=== PATIENT | male | born 1990 | race Caucasian/White ===

== ENCOUNTER 2024-06-12 10:30 | Outpatient (RCR) | payer MEDICAID, SELFPAY ==
--- NOTE | 2024-06-06 14:20 | PT.ODAYNRPT ---
PT Outpatient Daily Note OP Daily Note Outpatient Physical Therapy Treatment Date: 06/06/24 Visit Reasons: Spinal Stenosis Subjective: No changes to report at this time, continues to have pain and KELLER. Objective: Please see flow sheet for ther ex list. Assessment: Intervention progression delayed due to pt pain response to light interventions. Plan: Continue with POC. Length of Time (minutes) of Treatment: 30 Minutes Procedure Charges Therapeutic Exercise 30 minutes: Yes
--- NOTE | 2024-06-09 14:13 | PT.ODAYNRPT ---
PT Outpatient Daily Note OP Daily Note Outpatient Physical Therapy Treatment Date: 06/09/24 Visit Reasons: Spinal Stenosis Subjective: Pt reports minimal to no changes at this time. Objective: Please see flow sheet for ther ex list. Assessment: Applied mechanical traction, pt reports some relief tension relief post traction but last a few hours. Plan: Continue with POC. Length of Time (minutes) of Treatment: 30 Minutes Procedure Charges Therapeutic Exercise 30 minutes: Yes
--- NOTE | 2024-06-12 11:20 | PT.ODS1RPT ---
PT OP Progress/Discharge Note Date of Service: 06/12/24 Progress Note/DC Note Progress Note/Discharge Note: DC Note Patient Information Visit Reasons: Spinal Stenosis Medical Diagnosis: C/S Stenosis Treatment Dx #1: Neck Pain Service Continue Service or Discharge: Discharge Discharge Date: 06/12/24 Status Subjective: Pt's neck is about the same and continues to have pain down his arms. Pt has limitation with sitting, sleeping, standing, gripping, and performing recreational activities. Objective: C/S AROM: all motions are WNL Left Shoulder AROM: all motions are WNL Right Shoulder AROM: all motions are up to 50% towards end range BUE MMTs: grossly 3/5 Scapula MMTs: grossly 3-/5 Assessment: Pt continues to have c/s pain with radicular symptoms down the arms leading to difficulty with ADLs. Pt will no longer benefit from physical therapy due to minimal progression towards goals. Pt was instructed on HEP last session and educated to continue exercises to maintain overall mobility. Pt performed all exercises safely, thank you for your referrals. Plan: D/C home with HEP and follow up with MD ACEVEDO Procedure Charges Therapeutic Exercise 30 minutes: Yes
== END 2024-07-05 23:59 | disposition home or self-care (01) ==
LOC: CPTX 10:30
PROVIDERS: PCP Physician Assistant Medical; Referring Provider Physician Assistant Medical; Visit Provider Physician Assistant Medical
DX: M54.2 Cervicalgia (principal); R53.1 Weakness; M48.02 Spinal stenosis, cervical region
CPT/HCPCS: 97110

== ENCOUNTER 2024-07-14 05:03 | Emergency (ER) | payer MEDICAID, SELFPAY ==
[2024-07-14 05:04] VITALS: BMI 33.0
[2024-07-14 05:09] VITALS: BP 138/93; PULSE 74; RESP 17; TEMP 36.6; O2SAT 100
--- NOTE | 2024-07-14 05:21 | XR_ITS ---
Examination: Lumbar spine 3 views Technique one AP lateral coned lateral lower lumbar spine 3 views Exam date and time: July 14, 2024 0530 hrs. Comparison August 10, 2016 Indications: Low back pain beginning one week ago. Findings: Thoracolumbar dextroscoliosis 13 degrees No lumbar fracture No spondylolisthesis Mild to moderate lumbar disc narrowing most prominent at L5-S1 Impression: [id number] lumbar degenerative disc disease most prominent at L5-S1
--- NOTE | 2024-07-14 05:22 | PD.EDRME ---
Rapid Medical Screening Exam RME Arrival date/time: 07/14/24 05:03 33-year-old male presents emergency department complaining of low back pain that radiates down to right leg for several months. Chief Complaint: Back Pain/Injury Time Seen by Provider: 07/14/24 05:07 Vital signs: Vital Signs Temperature 97.8 F 07/14/24 05:09 Pulse Rate 74 07/14/24 05:09 Respiratory Rate 17 07/14/24 05:09 Blood Pressure 138/93 H 07/14/24 05:09 Pulse Oximetry (%) 100 07/14/24 05:09 Oxygen Delivery Method Room Air 07/14/24 05:09 Vital signs reviewed by provider: Yes
--- NOTE | 2024-07-14 07:24 | PD.EDBACK ---
ED Back Injury Pain RME/HPI General Chief Complaint: Back Pain/Injury Stated Complaint: MID BACK PAIN, RADIATES DOWN LEGS Time Seen by Provider: 07/14/24 05:07 Arrival date/time: 07/14/24 05:03 33-year-old male presents emergency department complaining of low back pain that radiates down to right leg for several months. Patient reports no saddle anesthesia no loss of bowel or bladder no fever nausea vomiting Limitations: no limitations RME / HPI RME / HPI Narrative: 07/14/24 05:03 33-year-old male presents emergency department complaining of low back pain that radiates down to right leg for several months. Related Data Previous Rx's ?Medication ?Instructions ?Recorded albuterol sulfate 90 mcg/actuation 2 puff inhalation QID #8.5 grams 12/28/21 aerosol inhaler azithromycin 250 mg tablet See Rx Instructions PO .COMPLEX #6 12/28/21 tabs hydrocodone 7.5 mg-acetaminophen 1 tab PO QID PRN pain #12 tabs 03/01/22 325 mg tablet tamsulosin 0.4 mg capsule (Flomax) 0.4 mg PO QDAY #7 caps 03/01/22 cyclobenzaprine 10 mg tablet 10 mg PO TID PRN muscle spasm 10 07/14/24 days #30 tab-caps Allergies Allergy/AdvReac Type Severity Reaction Status Date / Time Penicillins Allergy Severe Hives Verified 06/06/24 07:12 latex AdvReac Severe Anaphylaxis Verified 06/06/24 07:12 Review of Systems Review of Systems Systems Reviewed: All systems reviewed, normal except as documented Constitutional Constitutional: Reports system reviewed and no additional complaints, except as documented, Denies fever(s) and Denies headache(s) Eyes Eyes: Reports system reviewed and no additional complaints, except as documented and Denies blurry vision ENT Ears, Nose, Mouth, and Throat: Reports system reviewed and no additional complaints, except as documented, Denies headache(s), Denies nasal congestion and Denies nasal discharge Cardiovascular Cardiovascular: Reports system reviewed and no additional complaints, except as documented, Denies chest pain and Denies dyspnea Respiratory Respiratory: Reports system reviewed and no additional complaints, except as documented, Denies chest congestion, Denies cough and Denies dyspnea Gastrointestinal Gastrointestinal: Reports system reviewed and no additional complaints, except as documented and Denies abdominal pain Musculoskeletal Musculoskeletal: Reports system reviewed and no additional complaints, except as documented, Denies abnormal gait, Denies arthralgias, Reports back pain, Denies deformity, Denies numbness, Reports stiffness and Denies tingling Integumentary/Breasts Skin/Breast: Reports system reviewed and no additional complaints, except as documented and Denies rash Neurologic Neurologic: Reports system reviewed and no additional complaints, except as documented, Reports as per HPI, Denies abnormal gait, Denies headache(s), Denies numbness and Denies tingling Past Medical History Past Medical History NEUROLOGIC: Positive Neurological Disorders; Negative Seizures CARDIAC: Positive Hypertension; Negative Cardiac Disorders, Congestive Heart Failure, Edema, Cellulitis or Varicose Veins RESPIRATORY: Positive Sleep Apnea; Negative Chronic Obstructive Pulmonary Disease (COPD), Asthma or Tuberculosis GASTROINTESTINAL: Positive Gastrointestinal Disorders, Gall Bladder Disease, Hiatal Hernia and Obesity; Negative Hepatitis GENITOURINARY: Negative Genitourinary Disorders or Renal Disease MUSCULOSKELETAL: Negative Musculoskeletal Disorders ENDOCRINE: Negative Endocrine Disorders, Diabetes Mellitus Type 1 or Diabetes Mellitus Type 2 HEMATOLOGIC: Negative Blood Disorders or Sickle Cell Disease PSYCHO/SOCIAL: Positive Depression and Anxiety OTHER HISTORY: Negative Hospitalization, Autoimmune Disease, Shingles, Falls, Blood Transfusions, Blood Transfusion Reaction, Anesthesia Reactions, Chemotherapy, Radiation Therapy, MRSA, Chicken Pox, Measles, Mumps or Cancer Family History FAMILY HISTORY: Positive Family Respiratory Disorders, Family Cardiac Disorders and Family Surgery; Negative Family Psychiatric Problems, Family Gastrointestinal Problems, Family Cancer or Family Anesthesia Reaction Surgical History SURGICAL: Positive Abdominal Surgery, Gastric Bypass Surgery and Bowel Surgery; Negative Pacemaker Social History SMOKING STATUS: Never smoker SUBSTANCE USE: does not use ED Exam General Limitations: Present no limitations General appearance: Present alert and in no apparent distress Head Head exam: Present atraumatic Eye Eye exam: Present normal appearance, PERRL and EOMI ENT ENT exam: Present normal exam, normal oropharynx and mucous membranes moist Neck Neck exam: Present normal inspection, full ROM and trachea midline Chest Chest inspection: Present normal inspection and symmetric chest wall rise Respiratory Respiratory exam: Present normal lung sounds bilaterally Cardiovascular Cardiovascular exam: Present regular rate, normal rhythm and normal heart sounds Abdominal Exam Abdominal exam: Present soft and normal bowel sounds; Absent distention, tenderness, guarding, rebound or rigidity Extremities Exam Extremities exam: Present normal inspection and full ROM Back Exam Back exam: Present normal inspection, full ROM, tenderness and muscle spasm; Absent CVA tenderness (R) or CVA tenderness (L) Neurological Exam Neurological exam: Present alert, oriented X3, CN II-XII intact, normal gait and reflexes normal; Absent motor sensory deficit Psychiatric Psychiatric exam: Present normal affect and normal mood Skin Skin exam: Present warm, dry, intact and normal color Course Quality Measures none Orders Category Date Time Status XR lumbar spine 2-3V Stat Exams 07/14/24 05:21 Completed Vital Signs Vital signs: Vital Signs Temperature 97.8 F 07/14/24 05:09 Pulse Rate 74 07/14/24 05:09 Respiratory Rate 17 07/14/24 05:09 Blood Pressure 138/93 H 07/14/24 05:09 Pulse Oximetry (%) 100 07/14/24 05:09 Oxygen Delivery Method Room Air 07/14/24 05:09 O2 saturation 100% room air within normal limits Back Pain / Injury MDM Narrative MDM Narrative:: 33-year-old male presents emergency department complaining of low back pain that radiates down to right leg for several months. Patient reports no saddle anesthesia no loss of bowel or bladder no fever nausea vomiting On exam patient well-appearing patient does not appear ill or toxic in no acute distress Imaging obtained no acute emergent findings noted patient has chronic changes I gave the patient a copy of his x-ray report instructed him to follow-up with primary care doctor and if pain persist he may need an MRI for further evaluation Patient discharged home in no distress to follow-up with primary care doctor in the next 24 to 48 hours and for any worsening symptoms to return to the ER immediately Patient data External records reviewed:: [facility] previous records Clinical information provided by:: patient Social determinants that could affect healthcare access:: none Patient has the following chronic illnesses:: See history How is presenting disease/condition affected by chronic disease/condition?: exacerbated by Evaluation data The following diagnostics were reviewed and interpreted by me:: radiology exam(s) Lab and/or radiology exams considered but not ordered:: Radiology obtained Interpretation Summary: Reviewed by me Medications / Prescriptions Medications or Prescriptions considered but not ordered:: Given Medication administrations:: Given Consultations Consultation(s) initiated? (list below): No Diagnosis Differential diagnosis back pain/injury: lumbar radiculopathy, strain of lumbar region, pyelonephritis, thoracic back pain and discitis Most likely diagnosis given after review of the tests above:: Back pain Admission Indicated Admission indicated?: not indicated Admission Request Was there a request for admission?: No Disposition Plan Disposition Plan: Discharge Discharge Attestation Discharge Attestation: The patient and all family members were given an opportunity to ask questions and understood the discharge instructions. Discharge instructions specifically effects, indications for sooner follow up or return to the emergency department, and the expected course of current diagnosis. Patient condition: Stable Discharge Plan Plan Patient Disposition: HOME (Self Care) Disposition Comment: Stable Prescriptions/Referrals Prescriptions/Med Rec: New cyclobenzaprine 10 mg tablet 10 mg PO TID PRN (Reason: muscle spasm) 10 Days Qty: 30 0RF No Action azithromycin 250 mg tablet See Rx Instructions .ROUTE .COMPLEX Qty: 6 0RF Rx Instructions: For 250 mg dose pack: take 500 mg today (day 1), then 250 mg for 4 days (days 2-5) albuterol sulfate 90 mcg/actuation HFA aerosol inhaler 2 puff inhalation QID Qty: 8.5 0RF tamsulosin [Flomax] 0.4 mg capsule 0.4 mg PO QDAY Qty: 7 0RF hydrocodone-acetaminophen 7.5-325 mg tablet 1 tab PO QID MDD 4 tabs PRN (Reason: pain) Qty: 12 0RF Referrals: Korey Gallagher PA-C [Primary Care Provider] - 07/16/24 Problem List Clinical Impression: DDD (degenerative disc disease), lumbar Patient/Caregiver Discharge Instructions Education Materials: Back Safety Bed Additional Instructions: Please follow up with your primary care doctor in the next 24-48hrs for any worsening symptoms return here immediately Print Language: Trinidadian Stand Alone Forms: Laure Award Info., Patient Portal Info Letter PA/BABITA Supervising Physician PA/BABITA Supervising Physician: Dr. Cruz
== END 2024-07-14 07:40 | disposition home or self-care (01) ==
PROVIDERS: Emergency Provider Emergency Medicine; PCP Physician Assistant Medical
DX: M51.360 Other intervertebral disc degeneration, lumbar region with discogenic back pain only (principal)
CPT/HCPCS: 72100; 99283

== ENCOUNTER 2024-10-28 08:00 | Outpatient (RCR) | payer MEDICAID, SELFPAY ==
--- NOTE | 2024-10-09 09:52 | PT.OIERPT ---
PT OP Initial Eval Patient Information Outpatient Physical Therapy Treatment Date: 10/09/24 Visit Reasons: neck pain Medical Diagnosis: Neck Pain Treatment Dx #1: Neck Pain Start of Care: 10/09/24 Smoking Status Smoking Status: Never smoker Initial Assessment Subjective: Pt is a 33 y/o male reports of chronic neck pain with numbness/weakness down the hands. Pt's most recent MRI showed moderate stenosis at the C3-C5 levels. Pt has limitation with gripping, lifting, sleeping, chores, self care, and performing recreational activities. Pt also recommended to start pain management. Objective: C/S AROM: all motions are WFL with end range pain in all plane BUE AROM: all motions are WFL BUE MMTs: grossly 3+/5 Scapula MMTs: grossly 3+/5 [employer] Fabricator Strength L: 93 lbs R: 79 lbs Assessment: Pt demonstrate functional c/s mobility and UE strength, however, has pain leading to difficulty with ADLs. Pt will attempt physical therapy if pain persist Pt will be refer back to provider for further consultation. 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
--- NOTE | 2024-10-14 08:49 | PT.ODAYNRPT ---
PT Outpatient Daily Note OP Daily Note Outpatient Physical Therapy Treatment Date: 10/14/24 Visit Reasons: neck pain Subjective: Pt c/o neck pain. Objective: Please see flow sheet for ther ex list. Assessment: Pt demonstrates cervical rotation with upper trap stretch verbal cues and demonstration to focus on lateral flexion on c/s to achieve desired stretch, pt complied. Plan: Continue with POC. Length of Time (minutes) of Treatment: 30 Minutes Procedure Charges Therapeutic Exercise 30 minutes: Yes
--- NOTE | 2024-10-16 08:49 | PT.ODAYNRPT ---
PT Outpatient Daily Note OP Daily Note Outpatient Physical Therapy Treatment Date: 10/16/24 Visit Reasons: neck pain Subjective: Pt's neck feels alright ; traction helped with neck pain Objective: Please see flow chart for list of ther ex performed Assessment: added theraband exercises to exercise program with good tolerance Plan: Continue with PT Length of Time (minutes) of Treatment: 30 Minutes Procedure Charges Therapeutic Exercise 30 minutes: Yes
--- NOTE | 2024-10-21 08:56 | PT.ODAYNRPT ---
PT Outpatient Daily Note OP Daily Note Outpatient Physical Therapy Treatment Date: 10/21/24 Visit Reasons: neck pain Subjective: Pt's neck is about the same. Pt notice slight decrease in UE pain since starting physical therapy. Objective: Please see flow chart for list of ther ex performed Assessment: traction continue to provide decrease UE pain and radicular symptoms. Progress patient to standing chin tuck with good form demonstrated Plan: Continue with PT Length of Time (minutes) of Treatment: 30 Minutes Procedure Charges Therapeutic Exercise 30 minutes: Yes
--- NOTE | 2024-10-23 08:36 | PT.ODAYNRPT ---
PT Outpatient Daily Note OP Daily Note Outpatient Physical Therapy Treatment Date: 10/23/24 Visit Reasons: neck pain Subjective: Pt's neck feels okay. No new concerns to report. Objective: Please see flow chart for list of ther ex performed Assessment: decrease neck pain post PT session, however, no carryover from previous session. Plan: Contineu with PT Length of Time (minutes) of Treatment: 30 Minutes Procedure Charges Traction Mechanical: Yes Therapeutic Exercise 15 minutes: Yes
--- NOTE | 2024-10-28 08:38 | PTNOTE_ITS ---
PT OP Progress/Discharge Note Date of Service: 10/28/24 Progress Note/DC Note Progress Note/Discharge Note: DC Note Patient Information Visit Reasons: neck pain Medical Diagnosis: Neck Pain Treatment Dx #1: Neck Pain Service Discharge Date: 10/28/24 Status Subjective: Pt continues to have neck and arm pain despite doing a few weeks of therapy. Physical therapy helps short term, however, weakness and arm pain comes back in a few days. Due to symptoms continue to have limitation with chores, self care, sleeping, and performing recreational activities. Objective: C/S AROM: all motions are WNL with pain into end range in all plane BUE AROM: all motions are WNL BUE MMTs: grossly 3+/5 Scapula MMTs: grossly 3+/5 Client Development Director Strength L: 93 lbs R: 85 lbs Assessment: Pt continues to have neck pain with arm weakness leading to difficulty with ADLs. Pt will no longer benefit from physical therapy due to minimal progress towards goals. Pt was instructed on HEP last session and educated to continue exercises to maintain overall mobility. Pt performed all exercises safely, thank you for your referrals. Plan: D/C home with HEP and follow up with MD ACEVEDO Procedure Charges Therapeutic Exercise 30 minutes: Yes
== END 2024-11-03 23:59 | disposition home or self-care (01) ==
LOC: CPTX 08:00
DX: M48.02 Spinal stenosis, cervical region (principal)
CPT/HCPCS: 97012; 97110; 97162

== ENCOUNTER 2024-12-01 09:30 | Outpatient (RCR) | payer MEDICAID, SELFPAY ==
--- NOTE | 2024-11-04 10:40 | PTNOTE_ITS ---
PT OP Initial Eval Patient Information Outpatient Physical Therapy Treatment Date: 11/04/24 Visit Reasons: Back pain Medical Diagnosis: G62.9; Back Pain Treatment Dx #1: Back Pain Start of Care: 11/04/24 Date of Onset: 5 months ago Smoking Status Smoking Status: Never smoker Initial Assessment Subjective: Pt is a 33 y/o male reports of back pain (4/10) ~ 5 months ago. Pt denies of injury pain was insidious onset. Pt's xray showed moderate DDD of the L5-S1. No MRI has been done thus far. Pt has limitation with sitting, standing, chores, self care, balance, walking, and recreational activities. Objective: L/S AROM: all motions are WFL Hip PROM: all motions are WFL except IR Hip MMTs: grossly 3/5 Special Test (+) slump Assessment: Pt demonstrate back pain with consistent disc involvement leading to difficulty with ADLs. Pt will attempt physical therapy if pain persist Pt will be refer back to provider for further consultation. Short Term and Skilled Nursing Goals 1) Increase L/S AROM WNL in 6 wks to be able to perform chores 2) Decrease back pain to 2/10 in 6 wks to be able to sit and stand more than 30 mins 3) Increase core strength WFL in 6 wks to be able to perform recreational activities 4) Increase hip MMTs grossly to 4-/5 in 6 wks to be able to walk more than 30 mins 5) Indep with HEP Treatment Plan 1) Manual Therapy 2) Therapeutic Activities 3) Therapeutic Exercises 4) Modalities (ice, heat) Frequency and Duration: 2 x wk for 6 wks Certification Dates: 11/04/24 to 02/03/25 Procedure Charges OP PT Eval Mod Complex 30 minutes: Yes
--- NOTE | 2024-11-11 08:53 | PT.ODAYNRPT ---
PT Outpatient Daily Note OP Daily Note Outpatient Physical Therapy Treatment Date: 11/11/24 Visit Reasons: Back pain Subjective: Pt's back is okay. Pt mentioned he think he has abdominal hernia but is unsure. Pt has a consultation with the bariatric surgeon this evening. Objective: Please see flow chart for list of ther ex performed Assessment: tolerate exercises with minimal pain Plan: Continue with PT Length of Time (minutes) of Treatment: 30 Minutes Procedure Charges Therapeutic Exercise 30 minutes: Yes
--- NOTE | 2024-11-14 11:15 | PT.ODAYNRPT ---
PT Outpatient Daily Note OP Daily Note Outpatient Physical Therapy Treatment Date: 11/14/24 Visit Reasons: Back pain Subjective: Pt's back is okay. Pt received results from his gastro specialist which he feels so-so about Objective: Please see flow chart for list of ther ex performed Assessment: tolerate exercises with minimal pain Plan: Continue with PT Length of Time (minutes) of Treatment: 30 Minutes Procedure Charges Therapeutic Exercise 30 minutes: Yes
--- NOTE | 2024-11-19 09:09 | PT.ODAYNRPT ---
PT Outpatient Daily Note OP Daily Note Outpatient Physical Therapy Treatment Date: 11/19/24 Visit Reasons: Back pain Subjective: Pt c/o back pain, no changes in symptoms at this time. Objective: Please see flow sheet for ther ex list. Assessment: Pt tolerates light interventions with minimal pain. Plan: Continue with pOC. Length of Time (minutes) of Treatment: 30 Minutes Procedure Charges Therapeutic Exercise 30 minutes: Yes
--- NOTE | 2024-11-21 11:06 | PT.ODAYNRPT ---
PT Outpatient Daily Note OP Daily Note Outpatient Physical Therapy Treatment Date: 11/21/24 Visit Reasons: Back pain Subjective: Pt's back pain is about the same. No change in overall symptoms. Objective: Please see flow chart for list of ther ex performed Assessment: tolerate exercise with minimal pain. cues to correct Hs stretch to have knee straight during stretch to allowing hamstring to fully stretch through the motion Plan: Continue with PT Length of Time (minutes) of Treatment: 30 Minutes Procedure Charges Therapeutic Exercise 30 minutes: Yes
--- NOTE | 2024-11-25 10:57 | PT.ODAYNRPT ---
PT Outpatient Daily Note OP Daily Note Outpatient Physical Therapy Treatment Date: 11/25/24 Visit Reasons: Back pain Subjective: Pt's back is about the same. No worsening or increase pain lately. Pt's concerns is that maybe gastro-issue is causing the back pain. Objective: Please see flow chart for list of ther ex performed Assessment: tolerate exercises with minimal pain Plan: Continue with PT Length of Time (minutes) of Treatment: 30 Minutes Procedure Charges Therapeutic Exercise 30 minutes: Yes
--- NOTE | 2024-11-27 14:59 | PT.ODAYNRPT ---
PT Outpatient Daily Note OP Daily Note Outpatient Physical Therapy Treatment Date: 11/27/24 Visit Reasons: Back pain Subjective: Pt's back is okay. No concerns to report today. Objective: Please see flow chart for list of ther ex performed Assessment: tolerate exercises with minimal pain Plan: Continue with PT Length of Time (minutes) of Treatment: 30 Minutes Procedure Charges Therapeutic Exercise 30 minutes: Yes
--- NOTE | 2024-12-01 11:28 | PT.ODAYNRPT ---
PT Outpatient Daily Note OP Daily Note Outpatient Physical Therapy Treatment Date: 12/01/24 Visit Reasons: Back pain Subjective: Pt's back is okay. No new concerns to report. Objective: Please see flow chart for list of ther ex performed Assessment: tolerate exercises with minimal pain Plan: Continue with PT Length of Time (minutes) of Treatment: 30 Minutes Procedure Charges Therapeutic Exercise 30 minutes: Yes
== END 2024-12-03 23:59 | disposition home or self-care (01) ==
LOC: CPTX 09:30
PROVIDERS: PCP Physician Assistant Medical; Referring Provider Physician Assistant Medical; Visit Provider Physician Assistant Medical
DX: M51.370 Other intervertebral disc degeneration, lumbosacral region with discogenic back pain only (principal); R26.2 Difficulty in walking, not elsewhere classified; R26.89 Other abnormalities of gait and mobility; G62.9 Polyneuropathy, unspecified
CPT/HCPCS: 97110; 97162

== ENCOUNTER 2024-12-18 08:00 | Outpatient (RCR) | payer MEDICAID, SELFPAY ==
--- NOTE | 2024-12-04 09:07 | PT.ODAYNRPT ---
PT Outpatient Daily Note OP Daily Note Outpatient Physical Therapy Treatment Date: 12/04/24 Visit Reasons: back pain Subjective: Pt's back is about the same. No change in overall symptoms Objective: Please see flow chart for list of ther ex performed Assessment: tolerate exercises with minimal pain Plan: Continue with PT Length of Time (minutes) of Treatment: 30 Minutes Procedure Charges Therapeutic Exercise 30 minutes: Yes
--- NOTE | 2024-12-09 09:10 | PT.ODAYNRPT ---
PT Outpatient Daily Note OP Daily Note Outpatient Physical Therapy Treatment Date: 12/09/24 Visit Reasons: back pain Subjective: Pt's back pain is about the same. Pt will like a MRI soon to help screen out the back. Objective: Please see flow chart for list of ther ex performed Assessment: tolerate exercises performed; cues to pace with exercises today to decrease fatigue Plan: Continue with PT Length of Time (minutes) of Treatment: 30 Minutes Procedure Charges Therapeutic Exercise 30 minutes: Yes
--- NOTE | 2024-12-11 08:41 | PT.ODAYNRPT ---
PT Outpatient Daily Note OP Daily Note Outpatient Physical Therapy Treatment Date: 12/11/24 Visit Reasons: back pain Subjective: No changes to report with back symptoms, pt continues to c/o pins n needles, burning sensation down the legs. Objective: Please see flow sheet for ther ex list. Assessment: Pt completes assigned interventions with no complaints. Plan: Continue with poC. Length of Time (minutes) of Treatment: 30 Minutes Procedure Charges Therapeutic Exercise 30 minutes: Yes
--- NOTE | 2024-12-15 09:24 | PT.ODAYNRPT ---
PT Outpatient Daily Note OP Daily Note Outpatient Physical Therapy Treatment Date: 12/15/24 Visit Reasons: back pain Subjective: Pt's back is about the same. Pt will like to finish last session Objective: Please see flow chart for list of ther ex performed Assessment: minimal changes with pain. Cues to pace throughout PT session to help manage pain and decrease fatigue Plan: Continue with PT Length of Time (minutes) of Treatment: 30 Minutes Procedure Charges Therapeutic Exercise 30 minutes: Yes
--- NOTE | 2024-12-18 09:06 | PT.ODS1RPT ---
PT OP Progress/Discharge Note Date of Service: 12/18/24 Progress Note/DC Note Progress Note/Discharge Note: DC Note Patient Information Visit Reasons: back pain Medical Diagnosis: Back Pain Treatment Dx #1: Back Pain Service Continue Service or Discharge: Discharge Discharge Date: 12/18/24 Status Subjective: Pt's back is about the same. Pt has better days, however, pain still intermittent. Due to pain Pt has limitation with sitting, standing, chores, self care, lifting, and performing recreational activities. Objective: L/S AROM: all motions are WFL Hip PROM: all motions are WFL Hip MMTs: grossly 4-/5 Assessment: Pt demonstrate functional L/S mobility and core strength, however, minimal changes with pain leading to difficulty with ADLs. Pt will no longer benefit from physical therapy due to plateau towards goals. Pt was instructed on HEP last session and educated to continue exercises to maintain overall mobility. Pt performed all exercises safely, thank you for your referrals. Plan: D/C home with HEP and follow up with MD ACEVEDO Procedure Charges Therapeutic Exercise 30 minutes: Yes
== END 2025-01-03 23:59 | disposition home or self-care (01) ==
LOC: CPTX 08:00
PROVIDERS: PCP Physician Assistant Medical; Referring Provider Physician Assistant Medical; Visit Provider Physician Assistant Medical
DX: M51.370 Other intervertebral disc degeneration, lumbosacral region with discogenic back pain only (principal); G62.9 Polyneuropathy, unspecified; R26.2 Difficulty in walking, not elsewhere classified; R26.89 Other abnormalities of gait and mobility
CPT/HCPCS: 97110

== ENCOUNTER → 2025-03-04 | Outpatient (CLI) | payer MEDICAID, SELFPAY ==
--- NOTE | 2025-03-04 15:45 | XR_ITS ---
Examination: MRI lumbar spine without contrast Date and time of exam: March 04, 2025, 1558 hours. INDICATIONS: Lower back pain radiating down both legs burning in the legs and feet one year Technique: Multiple MRI axial and sagittal sections lumbar spine. Sagittal T2-weighted images, TR 3500, TE 118 T1 weighted transverse sections, TR 688 T8.5, T2-weighted sagittal sections T1 weighted sagittal sections TR 621, TE 30 T2 axial sections, TR 4, 190, TE 84. Findings: Satisfactory alignment lumbar vertebral bodies Mild disc narrowing L5-S1 Normal marrow signal lumbar vertebral bodies L5-S1 no disc protrusion L4-L5 4 mm central lumbar disc bulge contiguous with the right and left L5 nerve roots L3-L4 no disc protrusion L2-L3 no disc protrusion L1-L2 no disc protrusion IMPRESSION: L4-L5 4 mm central lumbar disc bulge contiguous with the right and left S1 nerve roots
== END | disposition home or self-care (01) ==
LOC: SMRI 15:24
PROVIDERS: PCP Physician Assistant Medical; Referring Provider Physician Assistant Medical; Visit Provider Physician Assistant Medical
DX: M51.370 Other intervertebral disc degeneration, lumbosacral region with discogenic back pain only (principal); M51.360 Other intervertebral disc degeneration, lumbar region with discogenic back pain only
CPT/HCPCS: 72148

== ENCOUNTER 2025-03-20 04:31 | Emergency (ER) | payer MEDICAID, SELFPAY ==
[2025-03-20 04:33] VITALS: BMI 27.7
[2025-03-20 04:56] VITALS: BP 143/94; PULSE 57; RESP 17; TEMP 36.4; O2SAT 100
--- NOTE | 2025-03-20 05:10 | PC.NURSE ---
PT ARRIVED TO ED FOR NECK PAIN. PT DENIES FALLING OR HAVING ANY TRAUMA TO NECK OR SPINE. PT STATES THAT HE WOKE UP WITH NECK PIAN AND IT HURTS TO MOVE NECK. PT DID STATES THAT HE HAS CHRONIC BACK AND NECK PAIN BUT TODAY WHEN WE WOKE UP AROUND 0300 HE NOTICED HE WAS UNABLE TO MOVE NECK. PROVIDER AT BEDSIDE. PT REFUSED MEDICATION. PROVIDER EDUCATED PT
--- NOTE | 2025-03-20 05:10 | PD.EDNECK ---
ED Neck Injury Pain RME/HPI General Chief Complaint: Neck Pain/Injury Stated Complaint: NONTRAUMATIC NECK PAIN Time Seen by Provider: 03/20/25 05:14 Arrival date/time: 03/20/25 04:31 RME / HPI RME / HPI Narrative: DR. LOTT MAIN ED EVALUATION: 34 y/o male presents with sudden right-sided neck pain while sleeping x just [employer]. Patient reports ongoing neck pain for the last 1.5 years. Denies any recent injury or trauma. No other concerns or complaints expressed at this time. Related Data Previous Rx's ?Medication ?Instructions ?Recorded albuterol sulfate 90 mcg/actuation 2 puff inhalation QID #8.5 grams 12/28/21 aerosol inhaler azithromycin 250 mg tablet See Rx Instructions PO .COMPLEX #6 12/28/21 tabs hydrocodone 7.5 mg-acetaminophen 1 tab PO QID PRN pain #12 tabs 03/01/22 325 mg tablet tamsulosin 0.4 mg capsule (Flomax) 0.4 mg PO QDAY #7 caps 03/01/22 Allergies Allergy/AdvReac Type Severity Reaction Status Date / Time Penicillins Allergy Severe Hives Verified 06/06/24 07:12 latex AdvReac Severe Anaphylaxis Verified 06/06/24 07:12 Review of Systems Review of Systems Systems Reviewed: All systems reviewed, normal except as documented Past Medical History Past Medical History NEUROLOGIC: Positive Neurological Disorders CARDIAC: Positive Hypertension RESPIRATORY: Positive Sleep Apnea GASTROINTESTINAL: Positive Gastrointestinal Disorders, Gall Bladder Disease, Hiatal Hernia and Obesity PSYCHO/SOCIAL: Positive Depression and Anxiety Family History FAMILY HISTORY: Positive Family Respiratory Disorders, Family Cardiac Disorders and Family Surgery Surgical History SURGICAL: Positive Abdominal Surgery, Gastric Bypass Surgery and Bowel Surgery ED Exam Narrative Physical exam: Generally patient is alert and in no obvious distress, heart regular rate and rhythm, lungs clear to auscultation bilaterally, abdomen soft bowel sounds present nondistended nontender, neck shows paravertebral muscular tenderness with some spasming of the sternocleidomastoid musculature on the right. No nuchal rigidity. Course Quality Measures none Vital Signs Vital signs: Vital Signs Temperature 97.6 F 03/20/25 04:56 Pulse Rate 57 L 03/20/25 04:56 Respiratory Rate 17 03/20/25 04:56 Blood Pressure 143/94 H 03/20/25 04:56 Pulse Oximetry (%) 100 03/20/25 04:56 Oxygen Delivery Method Room Air 03/20/25 04:56 Neck Pain MDM Narrative MDM Narrative:: Scribe Attestation: I, Zohra Madison, am scribing for and in the presence of Dr. Lott. Provider Notation: Although this document has been carefully reviewed, there may still be some phonetic and other typographical errors.? These errors are purely grammatical due to imperfections in the software program and should not be construed in any way to? compromise the substance of the patient's medical care during this visit. This was a traumatic neck pain which the patient woke up with. Patient has torticollis. He does not want pain medication at this time. He may take Tylenol and ibuprofen as needed at home. He may use [id number] pain patches applied to the painful areas of his neck. Apply warm to the painful areas. Patient data External records reviewed:: [facility] previous records (Reviewed prior ED records from 07/14/24. Patient was seen for DDD (degenerative disc disease), lumbar.) Clinical information provided by:: patient Social determinants that could affect healthcare access:: none Patient has the following chronic illnesses:: Hypertension, Sleep Apnea, Gall Bladder Disease, Hiatal Hernia, Obesity, Depression and Anxiety How is presenting disease/condition affected by chronic disease/condition?: uneffected by Evaluation data The following diagnostics were reviewed and interpreted by me:: other (specify) (N/A) Lab and/or radiology exams considered but not ordered:: None Interpretation Summary: N/A Medications / Prescriptions Medications or Prescriptions considered but not ordered:: Toradol Medication administrations:: Patient declined. Consultations Consultation(s) initiated? (list below): No Diagnosis Neck Differential Diagnosis: disc disorder of cervical region, closed subluxation of cervical spine, cervical radiculopathy, torticollis, cervical spondylosis and strain of neck muscle Most likely diagnosis given after review of the tests above:: Torticollis Admission Indicated Admission indicated?: not indicated Explain why admission is indicated or not indicated:: Patient does not meet admission criteria. Admission Request Was there a request for admission?: No Disposition Plan Disposition Plan: Discharge Discharge Attestation Discharge Attestation: The patient and all family members were given an opportunity to ask questions and understood the discharge instructions. Discharge instructions specifically effects, indications for sooner follow up or return to the emergency department, and the expected course of current diagnosis. Patient condition: Stable Discharge Plan Plan Patient Disposition: HOME (Self Care) Prescriptions/Referrals Prescriptions/Med Rec: No Action azithromycin 250 mg tablet See Rx Instructions .ROUTE .COMPLEX Qty: 6 0RF Rx Instructions: For 250 mg dose pack: take 500 mg today (day 1), then 250 mg for 4 days (days 2-5) albuterol sulfate 90 mcg/actuation HFA aerosol inhaler 2 puff inhalation QID Qty: 8.5 0RF tamsulosin [Flomax] 0.4 mg capsule 0.4 mg PO QDAY Qty: 7 0RF hydrocodone-acetaminophen 7.5-325 mg tablet 1 tab PO QID MDD 4 tabs PRN (Reason: pain) Qty: 12 0RF Problem List Clinical Impression: Torticollis Patient/Caregiver Discharge Instructions Education Materials: Torticollis (Wry Neck) Additional Instructions: You may apply warm to painful areas. You may use [id number] pain patches applied to the area. You may use Tylenol and ibuprofen for pain. Print Language: Vincentian Stand Alone Forms: Laure Award Info., Patient Portal Info Letter
[2025-03-20 05:23] VITALS: BP 143/94; PULSE 55; RESP 17; O2SAT 97
== END 2025-03-20 05:24 | disposition home or self-care (01) ==
LOC: SERX 05:26
PROVIDERS: Emergency Provider Emergency Medicine; PCP Physician Assistant Medical
DX: M43.6 Torticollis (principal)
CPT/HCPCS: 99282